=== PATIENT | female | born 1995 | race Caucasian/White ===

== ENCOUNTER 2016-11-19 16:54 | Emergency (ER) | payer BC ==
[2016-11-19] MEDS ORDERED: ONDANSETRON DISINTEGRATING 4 MG TAB ONE (17:15)
[2016-11-19 17:22] VITALS: BP 119/77; PULSE 74; RESP 16; TEMP 98.6; O2SAT 98
[2016-11-19] MEDS ORDERED: ONDANSETRON DISINTEGRATING 4 MG TAB PO ONE (17:32)
--- NOTE | 2016-11-19 17:35 | UCPHY ---
H & P Patient Type: Established Smoking Status: Former smoker Time Seen by Provider: 11/19/16 17:04 HPI/ROS: This patient presents with a chief complaint of vomiting which began at approximately midnight. Yesterday evening she admits to being intoxicated with alcohol. She has vomited numerous times probably more than 15. She has had no diarrhea. She has generalized abdominal pain. On several occasions the vomit contained blood although the last time she vomited there was no blood present. (Miguel Nguyễn) Physical Exam: GENERAL: Well-appearing, well-nourished and in mild distress. HEAD: Atraumatic, normocephalic. EYES: sclera anicteric, conjunctiva are normal. ENT: TMs normal, nares patent, oropharynx clear without exudates. Mucous membranes are quite dry NECK: Normal range of motion, supple without lymphadenopathy or JVD. LUNGS: No respiratory distress HEART: Regular rate and rhythm ABDOMEN: Soft, nontender, No guarding, no rebound. No masses appreciated. EXTREMITIES: Normal range of motion, no pitting or edema. No clubbing or cyanosis. NEUROLOGICAL: Cranial nerves II through XII grossly intact. Normal speech, normal gait. PSYCH: Normal mood, normal affect. SKIN: Warm, dry, normal turgor, no visible rashes or lesions. (Miguel Nguyễn) Constitutional: Initial Vital Signs Temperature (C) 37 C 11/19/16 17:20 Heart Rate 74 11/19/16 17:20 Respiratory Rate 16 11/19/16 17:20 Blood Pressure 119/77 11/19/16 17:20 O2 Sat (%) 98 11/19/16 17:20 O2 Delivery Mode Room Air Allergies/Adverse Reactions: No Known Allergies Allergy (Unverified 07/23/16 14:51) Home Medications: Medication Instructions Recorded NK [No Known Home Meds] 07/23/16 Medical Decision Making ED Course/Re-evaluation: Initially the patient declined an IV and was given oral Zofran which helped somewhat. The patient was concerned that if an IV was attempted she would vomiting began. She finally agreed to being hydrated intravenously before the IV was started she was given an additional 4 mg of is Zofran. The IV infiltrated and currently she is tolerating oral fluids and if this continues another IV will not be required. However she may require another IV and IV fluids. The patient is turned over to Dr. Lackey at 7:00 p.m.. (Miguel Nguyễn) Differential Diagnosis: I believe this patient has gastritis secondary to excessive alcohol and that the bleeding is related to a minor cause probably a Rohini-Ellis syndrome. ( Miguel Nguyễn) Other Provider: Patient endorsed to me at shift change for likely gastritis secondary to alcohol use. Second IV established IV fluids given CBC, CMP, lipase all within normal limits Urine negative for Patient discharged home with a ondansetron to go pack Follow-up as originally planned (Mago Lackey) - Data Points Laboratory Results: Laboratory Results 11/19/16 18:40 11/19/16 19:03 11/19/16 11/19/16 11/19/16 19:03 18:56 18:40 WBC 6.70 10^3/uL 10^3/uL (3.80-9.50) RBC 4.46 10^6/uL 10^6/uL (4.18-5.33) Hgb 13.3 g/dL g/dL (12.6-16.3) Hct 40.4 % % (38.0-47.0) MCV 90.6 fL fL (81.5-99.8) MCH 29.8 pg pg (27.9-34.1) MCHC 32.9 g/dL g/dL (32.4-36.7) RDW 13.0 % % (11.5-15.2) Plt Count 362 10^3/uL 10^3/uL (150-400) MPV 10.4 fL fL (8.7-11.7) Neut % (Auto) 61.6 % % (39.3-74.2) Lymph % (Auto) 33.7 % % (15.0-45.0) [place] % (Auto) 3.9 % L % (4.5-13.0) Eos % (Auto) 0.1 % L % (0.6-7.6) Baso % (Auto) 0.4 % % (0.3-1.7) Nucleat RBC Rel Count 0.0 % % (0.0-0.2) Absolute Neuts (auto) 4.12 10^3/uL 10^3/uL (1.70-6.50) Absolute Lymphs (auto) 2.26 10^3/uL 10^3/uL (1.00-3.00) Absolute Monos (auto) 0.26 10^3/uL L 10^3/uL (0.30-0.80) Absolute Eos (auto) 0.01 10^3/uL L 10^3/uL (0.03-0.40) Absolute Basos (auto) 0.03 10^3/uL 10^3/uL (0.02-0.10) Absolute Nucleated RBC 0.00 10^3/uL 10^3/uL (0-0.01) Immature Gran % 0.3 % % (0.0-1.1) Immature Gran # 0.02 10^3/uL 10^3/uL (0.00-0.10) Sodium 139 mEq/L mEq/L (134-144) Potassium 4.1 mEq/L mEq/L (3.5-5.2) Chloride 101 mEq/L mEq/L (97-110) Carbon Dioxide 25 mEq/l mEq/l (22-31) Anion Gap 13 mEq/L mEq/L (8-16) BUN 13 mg/dL mg/dL (7-23) Creatinine 0.7 mg/dL mg/dL (0.6-1.0) Estimated GFR > 60 Glucose 88 mg/dL mg/dL (70-100) Calcium 9.9 mg/dL mg/dL (8.5-10.4) Total Bilirubin 0.8 mg/dL mg/dL (0.1-1.4) AST 27 IU/L IU/L (14-46) ALT 33 IU/L IU/L (9-52) Alkaline Phosphatase 87 IU/L IU/L (38-126) Total Protein 7.8 g/dL g/dL (6.3-8.2) Albumin 4.6 g/dL g/dL (3.5-5.0) Lipase 117.0 IU/L IU/L (23-300) Urine Test NEGATIVE Medications Given: Discontinued Medications Sodium Chloride (Ns) 1,000 mls @ 0 mls/hr IV ONCE ONE PRN Reason: Wide Open Stop: 11/19/16 18:53 Last Admin: 11/19/16 19:30 Dose: 1,000 mls Sodium Chloride (Ns) 1,000 mls @ 0 mls/hr IV ONCE ONE PRN Reason: Wide Open Stop: 11/19/16 19:53 Last Admin: 11/19/16 19:45 Dose: 1,000 mls Ondansetron HCl (Zofran Odt) 4 mg PO EDNOW ONE Stop: 11/19/16 17:33 Last Admin: 11/19/16 18:21 Dose: 4 mg Ondansetron HCl (Zofran) 4 mg IVP EDNOW ONE Stop: 11/19/16 18:53 Last Admin: 11/19/16 19:45 Dose: 4 mg Ondansetron HCl (Zofran Odt 4 Mg Prepack#2) 1 btl TAKEHOME EDNOW ONE Stop: 11/19/16 20:21 Last Admin: 11/19/16 20:42 Dose: 1 btl Departure - Departure Disposition: Home, Routine, Self-Care Clinical Impression: Rohini-Ellis tear, Dehydration Gastritis Qualifiers: Gastritis type: alcoholic Chronicity: acute Gastritis bleeding: with bleeding Qualified Code(s): K29.21 - Alcoholic gastritis with bleeding Condition: Good Instructions: Dehydration (ED), Acute Nausea and Vomiting (ED), Abdominal Pain (ED) Additional Instructions: If the vomiting recurs and is not controlled by the oral Zofran you should return. If the abdominal pain worsens you should return. He do not eat any solids until tomorrow morning and only if you feel hungry. Do keep yourself hydrated with small volumes of fluid frequently. Referrals: NONE *PRIMARY CARE P,. [Primary Care Provider] - As per Instructions - PQRS PQRS Measurement: Not applicable (Miguel Nguyễn)
[2016-11-19] MEDS ORDERED: ONDANSETRON 4 MG/2 ML VIAL ONE (18:01)
[2016-11-19] MEDS ORDERED: NS 1,000 ML IV ONE ×2 (18:52→19:52)
[2016-11-19 19:07] LABS: % IMMATURE GRANULYOCYTES 0.3 % (0.0-1.1); ABSOLUTE IMMATURE GRANULOCYTES 0.02 10^3/uL (0.00-0.10); ADD DIFF? NO; ADD MORPH? NO; ADD SCAN? NO; ATYPICAL LYMPHOCYTE FLAG 0 (0-99); FRAGMENT RBC FLAG 0 (0-99); HEMATOCRIT 40.4 % (38.0-47.0); HEMOGLOBIN 13.3 g/dL (12.6-16.3); LEFT SHIFT FLG 0 (0-99); LIPEMIA HEMOLYSIS FLAG 80 (0-99); MEAN CELL HEMOGLOBIN 29.8 pg (27.9-34.1); MEAN CELL HEMOGLOBIN CONCENTR. 32.9 g/dL (32.4-36.7); MEAN CELL VOLUME 90.6 fL (81.5-99.8); MEAN PLATELET VOLUME 10.4 fL (8.7-11.7); PLATELET CLUMPS FLAG 0 (0-99); PLATELET COUNT 362 10^3/uL (150-400); RED BLOOD CELL COUNT 4.46 10^6/uL (4.18-5.33)
[2016-11-19] MEDS: ONDANSETRON 4 MG/2 ML VIAL IVP ONE ×2 (19:24→19:45)
[2016-11-19 19:31] LABS: ALANINE AMINOTRANSFERASE 33 IU/L (9-52); ALBUMIN 4.6 g/dL (3.5-5.0); ALKALINE PHOSPHATASE 87 IU/L (38-126); ANION GAP 13 mEq/L (8-16); ASPARTATE AMINOTRANSFERASE 27 IU/L (14-46); BILIRUBIN,TOTAL 0.8 mg/dL (0.1-1.4); CALCIUM 9.9 mg/dL (8.5-10.4); CARBON DIOXIDE 25 mEq/l (22-31); CHLORIDE 101 mEq/L (97-110); CREATININE 0.7 mg/dL (0.6-1.0); GLOMERULAR FILTRATION RATE > 60; GLUCOSE 88 mg/dL (70-100); POTASSIUM 4.1 mEq/L (3.5-5.2); SODIUM 139 mEq/L (134-144); TOTAL PROTEIN 7.8 g/dL (6.3-8.2)
[2016-11-19] MEDS ORDERED: ONDANSETRON 4MG PREPACK#2 BTL TAKEHOME ONE (20:20)
== END 2016-11-19 20:43 | disposition home or self-care (01) ==
LOC: CED 16:54
DX: K29.21 Alcoholic gastritis with bleeding (principal); E86.0 Dehydration
CPT/HCPCS: 80053-PO; 81025-PO; 83690-PO; 85025-PO; 96361-PO; 96374-PO; 96376-PO; G0463-PO; J2405